=== PATIENT | male | born 1955 | race Hispanic/Latino ===

== ENCOUNTER 2021-01-01 11:21 | Emergency (ER) | payer SELFPAY ==
--- NOTE | ~2021-01-01 | XR_ITS ---
EXAMINATION: XR abdomen/kub 1V EXAM DATE: 01/01/2021 13:01 INDICATION: RLQ pain hx kidney stone . TECHNIQUE: Frontal projection(s) of the abdomen for interpretation. There is no prior study for kate scruggs. FINDINGS: There is expected amount of colonic stool and gas. No small bowel dilation, nonobstructiv e bowel gas pattern. There are no suspicious calcifications identified. There is no organomegaly suspected. The bones are unremarkable. IMPRESSION: Unremarkable abdomen x-ray exam. Reviewed, dictated and finalized at location B.
[2021-01-01 11:40] VITALS: BP 148/96; PULSE 64; RESP 16; TEMP 37.1; O2SAT 98
--- NOTE | 2021-01-01 12:51 | ED.ABDPAIN ---
HPI - Abdominal Pain General Chief Complaint: Urogenital-Male Stated Complaint: right side pain Time Seen by Provider: 01/01/21 12:38 Source: patient and RN notes reviewed Mode of arrival: ambulatory Limitations: no limitations History of Present Illness HPI narrative: Patient presents today complaining of pain to his right flank/side since this morning with nausea. Denies fever, vomiting, dysuria, hematuria. Currently rates his pain 8/10 and has tried no [id number] treatment prior to arrival. History of kidney stones 2 years ago. MD elicited complaint: flank pain Related Data Allergies Allergy/AdvReac Type Severity Reaction Status Date / Time No Known Allergies Allergy Verified 01/01/21 12:21 Review of Systems Review of Systems: Narrative: CONSTITUTIONAL: Denies body aches, fever, chills, or sweats. EYES: Denies visual changes, redness, or discharge. ENT: Denies rhinorrhea, congestion, sore throat, or otalgia. CARDIOVASCULAR: Denies chest pain, palpitations, or edema. RESPIRATORY: Denies cough or dyspnea. GASTROINTESTINAL: Denies vomiting, or diarrhea.+ Flank pain, nausea GENITOURINARY: Denies dysuria or hematuria. SKIN: Denies rash, itching, or wounds. MUSCULOSKELETAL: Denies back pain, joint pain, or myalgia. NEUROLOGIC: Denies headache, numbness, tingling, or weakness. PSYCH: Denies depression or anxiety. [facility] Past Medical History Medical History (Updated 01/01/21 @ 13:26 by Cami Mohamud, [facility], ) Kidney stone Comments At time of signature, I have reviewed and agree with nursing past medical, surgical, social and family history unless otherwise noted. Please see nursing chart for further information. There is no relevant family history pertinent to the presenting complaint Exam Narrative: Exam Narrative: GENERAL: Well-appearing, well-nourished, and in no acute distress. HEAD: Normocephalic, atraumatic. EYES: EOMI. No redness or drainage. Conjunctivae normal. ENT: Mucous membranes pink and moist. NECK: Normal AROM. CHEST: No respiratory distress. Clear to auscultation. HEART: Regular rate and rhythm. No murmur appreciated. Normal peripheral pulses. ABDOMEN: Soft, nondistended, normal active bowel sounds.+ Tenderness to the right lateral abdomen.-CVAT MUSCULOSKELETAL: No bony tenderness. EXTREMITIES: Normal range of motion. No edema. SKIN: Warm, dry, no rash. Capillary refill normal. Normal skin turgor. NEURO: No focal deficits. Alert and oriented x3. Gait steady. PSYCH: Normal affect. No signs of depression or anxiety. Course Course Emergency Course: X-ray was unable to identify a kidney stone. UA shows trace amount of blood. Patient is having lateral abdominal pain from the right flank. I have asked patient his choice of going to the ER for evaluation and being treated first at home. He would like to go home and try Flomax and strain his urine to see if he can pass a presumed stone. Understands that if his symptoms worsen in any way to include worsening abdominal pain, fever that he needs to go to the ER immediately for further evaluation. Vital Signs Vital signs: Vital Signs Temperature 98.7 F 01/01/21 11:40 Pulse Rate 64 01/01/21 11:40 Respiratory Rate 16 01/01/21 11:40 Blood Pressure 148/96 H 01/01/21 11:40 Pulse Oximetry 98 01/01/21 11:40 Temperature 98.7 F 01/01/21 11:40 Pulse Rate 64 01/01/21 11:40 Respiratory Rate 16 01/01/21 11:40 Blood Pressure 148/96 H 01/01/21 11:40 Pulse Oximetry 98 01/01/21 11:40 Reviewed. Pt has been instructed to follow up with his PCP regarding his elevated blood pressure today. MDM - Abdominal Pain Differential Diagnosis Differential diagnosis: Likely abdominal pain, acute appendicitis, calculus of kidney and constipation Lab Data Attestation: I reviewed the patient's lab results. Labs: Urine Glucose Negative Reference Range: Negative U
== END 2021-01-01 13:30 | disposition home or self-care (01) ==
PROVIDERS: Emergency Provider Nurse Practitioner
DX: R10.9 Unspecified abdominal pain (principal); Z87.442 Personal history of urinary calculi
CPT/HCPCS: 74018; 81003; 99203; G0463

== ENCOUNTER 2024-05-18 15:38 | Emergency (ER) | payer SELFPAY ==
[2024-05-18 15:45] VITALS: BP 134/57; PULSE 65; RESP 18; TEMP 36.6; O2SAT 99
--- NOTE | 2024-05-18 16:13 | ED.URI ---
HPI - URI/Sore Throat General Chief Complaint: Upper Respiratory Infection Stated Complaint: Cough/Sinus Time Seen by Provider: 05/18/24 16:36 Source: patient, RN notes reviewed and old records reviewed Mode of arrival: ambulatory Limitations: no limitations History of Present Illness HPI Narrative: Patient presents accompanied by his son. Patient requests that son remains in the room. Patient has been complaining of cough and sore throat for couple of days. He does have some runny nose. He denies any fever, chills, sweats. Denies any shortness of breath. Has not been taking any medications for his symptoms. Voices no other concerns or complaints today. Related Data Home Medications Medication Instructions Recorded Confirmed No Home Medications 05/18/24 05/18/24 Allergies Allergy/AdvReac Type Severity Reaction Status Date / Time Penicillins AdvReac Rash Verified 05/18/24 16:23 Review of Systems Review of Systems: All systems reviewed & are unremarkable except as noted in HPI and below Constitutional: Constitutional: Reports no additional constitutional complaints ENT: Reports system reviewed and no additional complaints, except as documented, Reports hoarseness, Reports nasal discharge and Reports sore throat Cardiovascular: Cardiovascular: Reports no additional cardiovascular complaints Respiratory: Respiratory: Reports no additional respiratory complaints and Reports cough Gastrointestinal: Gastrointestinal: Reports no additional gastrointestinal complaints [facility] Past Medical History Medical History (Updated 05/18/24 @ 16:41 by Zaira Jane, LEE) Kidney stone Comments At the time of my signature, I reviewed and agree with the nursing past medical, surgical, social, and family history. There is no relevant family history pertinent to the patient complaint. Exam Const: General: cooperative, no acute distress, alert and awake Orientation/consciousness: oriented to person, oriented to place and oriented to time HENMT: Head: normal to inspection Resp: Effort & Inspection: normal respiratory effort and able to speak in complete sentences Auscultation: clear to auscultation bilaterally, no crackles, no rales, no rhonchi and no wheezes Cardio: Palpation: normal PMI Rate: regular rate Rhythm: regular rhythm Heart sounds: S1 normal heart sound present and S2 normal heart sound present Neuro: General: oriented to person, oriented to place and oriented to time Cranial nerves: Yes CN's II-XII intact bilaterally Psych: Appearance: grossly normal Thought process: Normal thought process present Insight: Good insight present (Psych) Judgement: Good judgement present (Psych) Course Course Level of Care: Express Care Visit Vital Signs Vital signs: Vital Signs Temperature 98 F 05/18/24 15:45 Pulse Rate 65 05/18/24 15:45 Respiratory Rate 18 05/18/24 15:45 Blood Pressure 134/57 L 05/18/24 15:45 Pulse Oximetry 99 05/18/24 15:45 Oxygen Delivery Room Air 05/18/24 15:45 Temperature 98 F 05/18/24 15:45 Pulse Rate 65 05/18/24 15:45 Respiratory Rate 18 05/18/24 15:45 Blood Pressure 134/57 L 05/18/24 15:45 Pulse Oximetry 99 05/18/24 15:45 Oxygen Delivery Room Air 05/18/24 15:45 Reviewed MDM - URI/Sore Throat MDM Narrative Medical decision making narrative: Negative flu, negative COVID, negative strep. Culture pending. Reassuring physical exam. Patient in no distress. Follow with primary care provider. Emergency department for new or worse symptoms. Exam consistent with URI. Discharge instructions reviewed with patient, as well as provided in writing per nursing staff. The instructions also include specific and strict return/GO TO THE ER as well as f/u information. All questions have been answered, and the patient deny any further questions with discharge and discharge plan. Some parts of this dictation were generated by voice recognition softw
[2024-05-18 16:29] LABS: EDCOVIDSCREEN Negative (Negative); EDINFLUASCREEN Negative (Negative); EDINFLUBSCREEN Negative (Negative); EDSTREPNEGPOS1 Negative (Negative)
== END 2024-05-18 16:45 | disposition home or self-care (01) ==
PROVIDERS: Emergency Provider Nurse Practitioner Family
DX: J06.9 Acute upper respiratory infection, unspecified (principal); Z20.822 Contact with and (suspected) exposure to COVID-19
CPT/HCPCS: 87081; 87426; 87804; 87880; 99213; G0463